=== PATIENT | female | born 1960 | race Caucasian/White ===

== ENCOUNTER → 2017-03-16 | Outpatient (CLI) | payer OTHER ==
[~2017-03-16] MED LIST: ALLEGRA PO; AMITRIPTYLINE H50 MG PO; AMOXICILLIN500 M1 PO; DARVOCET-N 1001 TAB PO; FLEXERIL10 MG PO; FLONASE16 GM; KLONOPIN PO; LUNESTA PO; PREDNISONE PO; REMERON PO; REMERON45 MG PO; SINGULAIR PO; TRAMADOL HCL50 M1 PO; XANAX0.5 M1 PO; ZYRTEC10 M2 PO
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
== END | disposition home or self-care (01) ==
LOC: CMRI 17:41
DX: M75.111 Incomplete rotator cuff tear or rupture of right shoulder, not specified as traumatic (principal); M50.122 Cervical disc disorder at C5-C6 level with radiculopathy; M50.123 Cervical disc disorder at C6-C7 level with radiculopathy; M19.011 Primary osteoarthritis, right shoulder
CPT/HCPCS: 72141; 73221